=== PATIENT | female | born 1990 | race Caucasian/White ===

== ENCOUNTER 2019-08-07 06:50 | Day surgery (SDC) | payer OTHER ==
[~2019-08-07] VITALS: Ht 162.6 cm; Wt 80.3 kg
[~2019-08-07 06:50] MED LIST: BUPR15TA PO; CLAR10CA3 PO; FLON1SPR NARES; MYSO50TA5 PO; NS 1,000 ML IV ONE; OMEP40CA97 PO
[2019-08-07] MEDS ORDERED: fentaNYL 100 MCG/2 ML INJECTION (J3010) As Ordered ONE (08:29)
--- NOTE | 2019-08-07 08:35 | ROOR ---
Patient Name: Desire Patton Procedure Date: 08/07/2019 8:13 AM Date of : 1990 Age: 28 Room: [facility] Gender: Female Note Status: Finalized Procedure: Upper Endoscopy + Biopsies Indications: Heartburn Providers: Pierre Rodriguez MD Referring MD: HOLDEN PEOPLES MD Requesting Provider: Medicines: Monitored Anesthesia Care Complications: No immediate complications. Procedure: Pre-Anesthesia Assessment: - The heart rate, respiratory rate, oxygen saturations, blood pressure, adequacy of pulmonary ventilation, and response to care were monitored throughout the procedure. The Endoscope was introduced through the mouth, and advanced to the second part of duodenum. The upper GI endoscopy was accomplished without difficulty. The patient tolerated the procedure well. Findings: The Z-line was variable and was found 40 cm from the incisors. Multiple biopsies were obtained with cold forceps for evaluation to rule out Mercado's Esophagus randomly at the gastroesophageal junction. One superficial esophageal ulcer with no bleeding and no stigmata of recent bleeding was found 40 cm from the incisors. No other significant abnormalities were identified in a careful examination of the stomach. Biopsies were taken with a cold forceps in the gastric antrum for Helicobacter pylori testing. The exam of the duodenum was otherwise normal. Impression: - Z-line variable, 40 cm from the incisors. - Non-bleeding esophageal ulcer. - Multiple biopsies were obtained at the gastroesophageal junction. - Biopsies were taken with a cold forceps for Helicobacter pylori testing. - The examination was otherwise normal. Recommendation: - Patient has a contact number available for emergencies. The signs and symptoms of potential delayed complications were discussed with the patient. Return to normal activities tomorrow. Written discharge instructions were provided to the patient. - High fiber diet. - Discharge patient to home. - Follow an antireflux regimen. - Continue present medications. - Await pathology results. - Telephone GI clinic for pathology results in 1 week. - Return to referring physician. - The findings and recommendations were discussed with the patient's family. Pierre Rodriguez MD Pierre Rodriguez MD 08/07/2019 8:34:45 AM Electronically signed by Pierre Rodriguez MD Number of Addenda: 0 Note Initiated On: 08/07/2019 8:13 AM Estimated Blood Loss: Estimated blood loss: none.
--- NOTE | 2019-08-07 08:51 | ROOR ---
Patient Name: Desire Patton Procedure Date: 08/07/2019 8:14 AM Date of : 1990 Age: 28 Room: [facility] Gender: Female Note Status: Finalized Procedure: Total Colonoscopy to Cecum + ileoscopy Indications: Rectal bleeding, Change in bowel habits Providers: Pierre Rodriguez MD Referring MD: HOLDEN PEOPLES MD Requesting Provider: Medicines: Monitored Anesthesia Care Complications: No immediate complications. Procedure: Pre-Anesthesia Assessment: - The heart rate, respiratory rate, oxygen saturations, blood pressure, adequacy of pulmonary ventilation, and response to care were monitored throughout the procedure. The Colonoscope was introduced through the anus and advanced to the terminal ileum, with identification of the appendiceal orifice and IC valve. The colonoscopy was performed without difficulty. The patient tolerated the procedure well. The quality of the bowel preparation was excellent. Findings: The perianal and digital rectal examinations were normal. Non-bleeding internal hemorrhoids were found during retroflexion. The hemorrhoids were small and Grade I (internal hemorrhoids that do not prolapse). No other significant abnormalities were identified in a careful examination of the remainder of the colon. The terminal ileum appeared normal. The exam was otherwise without abnormality on direct and retroflexion views. Impression: - Non-bleeding internal hemorrhoids. - The examined portion of the ileum was normal. - The examination was otherwise normal on direct and retroflexion views. - No specimens collected. - The exam was otherwise normal to the cecum. Recommendation: - Patient has a contact number available for emergencies. The signs and symptoms of potential delayed complications were discussed with the patient. Return to normal activities tomorrow. Written discharge instructions were provided to the patient. - High fiber diet. - Discharge patient to home. - Continue present medications. - Repeat colonoscopy at age 48 for screening purposes. - Return to referring physician. - The findings and recommendations were discussed with the patient's family. Pierre Rodriguez MD Pierre Rodriguez MD 08/07/2019 8:50:49 AM Electronically signed by Pierre Rodriguez MD Number of Addenda: 0 Note Initiated On: 08/07/2019 8:14 AM Estimated Blood Loss: Estimated blood loss: none.
[2019-08-07 09:05] VITALS: BP 116/59
== END 2019-08-07 09:18 | disposition home or self-care (01) ==
LOC: M OPP 06:50
PROVIDERS: ATTEND Internal Medicine Gastroenterology
DX: K64.0 First degree hemorrhoids (principal); K62.5 Hemorrhage of anus and rectum; R19.4 Change in bowel habit; K22.8 Other specified diseases of esophagus; K22.10 Ulcer of esophagus without bleeding; R12 Heartburn; Z79.899 Other long term (current) drug therapy; Z88.5 Allergy status to narcotic agent; Z88.6 Allergy status to analgesic agent
CPT/HCPCS: 43239; 45378; 88305; J3010

== ENCOUNTER → 2020-09-16 | Outpatient (CLI) | payer SELFPAY ==
[~2020-09-16] MED LIST changes: -NS 1,000 ML IV ONE
== END ==
LOC: M LABSMTC 14:31
PROVIDERS: ATTEND Pediatrics
DX: Z11.59 Encounter for screening for other viral diseases (principal)